=== PATIENT | male | born 1965 | race Caucasian/White ===

== ENCOUNTER 2021-02-07 18:20 | Emergency (ER) | payer OTHER ==
[~2021-02-07 18:20] MED LIST: ALBUTEROL2.5 MG/3 M NEB; CEFUROXIME500 MG PO; CRESTOR 10 MG T10 MG PO; HYDROCODON-ACE1 EAC2 PO; LEVETIRACETAM500 MG PO; LOPRESSOR 25 MG25 MG PO; LOVASTATIN10 MG PO; MEDROL4 MG PO; METHOCARBAMOL500 MG PO; NEURONTIN300 MG PO; NORVASC 5 MG TAB5 MG PO; PROAIR HFA8.5 GM INH; SINGULAIR10 MG PO; TESSALON PERLE100 MG PO; TYLENOL 325MG325 MG PO; VITAMIN D21250 MCG PO
[2021-02-07 19:31] LABS: HEMOGLOBIN 12.8 gm/dl (14.0-17.5); RED BLOOD COUNT 4.42 M/UL (4.20-5.50); WHITE BLOOD COUNT 9.9 K/UL (4.5-11.0)
[2021-02-07 19:52] LABS: BUN/CREATININE RATIO 10 (0-10)
== END 2021-02-07 22:55 | disposition home or self-care (01) ==
LOC: ER1 18:20
PROVIDERS: Physician Assistant
DX: R53.1 Weakness (principal); R53.83 Other fatigue; I10 Essential (primary) hypertension; E78.5 Hyperlipidemia, unspecified; F41.9 Anxiety disorder, unspecified; F17.210 Nicotine dependence, cigarettes, uncomplicated; Z90.49 Acquired absence of other specified parts of digestive tract
CPT/HCPCS: 71045; 80053; 81001; 82550; 82553; 83605; 83735; 83874; 83880; 84484; 85025; 85610; 85652; 85730; 87040; 87086; 99285

== ENCOUNTER 2021-02-12 22:34 | Inpatient (IN) | payer OTHER ==
[~2021-02-12] VITALS: Ht 182.9 cm; Wt 104.3 kg
[2021-02-13] MEDS ORDERED: METOPROLOL SUC100 MG PO (00:04)
[2021-02-13 00:05] LABS: HEMOGLOBIN 13.1 gm/dl (14.0-17.5); RED BLOOD COUNT 4.53 M/UL (4.20-5.50); WHITE BLOOD COUNT 14.3 K/UL (4.5-11.0)
[2021-02-13 00:18] LABS: BUN/CREATININE RATIO 17 (0-10)
[2021-02-13 05:23] LABS: HEMOGLOBIN 13.4 gm/dl (14.0-17.5); RED BLOOD COUNT 4.67 M/UL (4.20-5.50); WHITE BLOOD COUNT 12.3 K/UL (4.5-11.0)
[2021-02-13] MEDS ORDERED: AZELASTINE137 MCG/0. (10:56)
[2021-02-13] MEDS ORDERED: FLONASE ALLER15.8 ML (10:56)
[2021-02-13] MEDS ORDERED: SINGULAIR10 MG PO (10:57)
[2021-02-13] MEDS ORDERED: ALBUTEROL2.5 MG/3 M NEB (10:58)
[2021-02-13] MEDS ORDERED: STIOLTO RESPIMAT4 GM INH (10:58)
[2021-02-13] MEDS ORDERED: IPRAT-ALBUT 0.5-3 ML INH (10:59)
--- NOTE | 2021-02-13 13:12 | NUR ---
0700 ADMISSION/ASSESMENT COMPLETE.... 1258 ADMISSION CHARTED FORGOT TO CHANGE TIME STAMP TO 0700.
[2021-02-13] MEDS ORDERED: KLONOPIN1 MG PO (23:50)
[2021-02-14 02:24] LABS: HEMOGLOBIN 12.1 gm/dl (14.0-17.5); RED BLOOD COUNT 4.3 M/UL (4.20-5.50); WHITE BLOOD COUNT 13.4 K/UL (4.5-11.0)
[2021-02-14 03:16] LABS: BUN/CREATININE RATIO 23 (0-10)
--- NOTE | 2021-02-14 06:25 | NUR ---
PT GOT UP AND PULLED IV APART AND WAS STAGGERING DOWN THE MEJIA WITH BLOOD DRIPPING FROM IV. CONFUSED TO TIME AND PLACE. OXYGEN OFF WELL. IN THE ROOM SLEEPING. PATIENT REDIRECTED AND REORIENTED AND WOKE UP. PATIENT IS TEARY STATING HE DOESNT WANT TO BE TIED DOWN. EXPLAINED TO PATIENT THAT WITH HIS ILLNESS HE NEEDS TO BE MONITORED CLOSER SO HE CAN GET BETTER AND GO HOME. PATIENTS COMES OVER AND SITS ON THE BED AND STATES SHE WILL STAY UP BUT SHE ALSO IS STAGGERING WITH SLURRED SPEECH POSSIBLY DUE TO MEDICATION AND SHE STATES SHE IS NOT AWAKE YET.
[2021-02-14 14:47] LABS: HEMOGLOBIN 11.5 gm/dl (14.0-17.5); RED BLOOD COUNT 4.03 M/UL (4.20-5.50); WHITE BLOOD COUNT 10.7 K/UL (4.5-11.0)
[2021-02-14 15:06] LABS: BUN/CREATININE RATIO 18 (0-10)
[2021-02-15 05:26] LABS: HEMOGLOBIN 11.5 gm/dl (14.0-17.5); RED BLOOD COUNT 4.05 M/UL (4.20-5.50); WHITE BLOOD COUNT 10.6 K/UL (4.5-11.0)
[2021-02-15 05:45] LABS: BUN/CREATININE RATIO 19 (0-10)
[2021-02-15] MEDS ORDERED: MEDROL4 MG PO (10:37)
[2021-02-15] MEDS ORDERED: LEVOFLOXACIN750 MG PO (10:37)
== END 2021-02-15 11:45 | disposition home or self-care (01) | DRG 189 ==
LOC: ER1 22:34 → CDU 02-13 01:47 → PROG CARE 02-13 07:50
PROVIDERS: Family Medicine; ADMIT Internal Medicine
DX: J96.21 Acute and chronic respiratory failure with hypoxia (principal); J44.1 Chronic obstructive pulmonary disease with (acute) exacerbation; K86.1 Other chronic pancreatitis; G40.909 Epilepsy, unspecified, not intractable, without status epilepticus; Z20.822 Contact with and (suspected) exposure to COVID-19; E78.5 Hyperlipidemia, unspecified; M47.896 Other spondylosis, lumbar region; I48.91 Unspecified atrial fibrillation; I11.9 Hypertensive heart disease without heart failure; J96.22 Acute and chronic respiratory failure with hypercapnia; F41.9 Anxiety disorder, unspecified; F17.210 Nicotine dependence, cigarettes, uncomplicated; E11.43 Type 2 diabetes mellitus with diabetic autonomic (poly)neuropathy; Z99.81 Dependence on supplemental oxygen; Z87.01 Personal history of pneumonia (recurrent); Z90.49 Acquired absence of other specified parts of digestive tract; Z83.3 Family history of diabetes mellitus; Z82.49 Family history of ischemic heart disease and other diseases of the circulatory system; Z79.4 Long term (current) use of insulin; Z79.01 Long term (current) use of anticoagulants; Z71.6 Tobacco abuse counseling
CPT/HCPCS: 0240U; 36415; 36600; 71045; 80048; 80053; 80202; 80307; 82550; 82553; 82803; 82962; 83605; 83880; 84484; 85025; 85027; 85610; 87040; 93005; 94640; 94660; 94664; 94760; 96374; 99285; G0480; J1650; J1956; J2920; J2930; J3370; J7030; J7070

== ENCOUNTER 2021-03-05 02:11 | Inpatient (IN) | payer OTHER ==
[~2021-03-05] VITALS: Ht 185.4 cm; Wt 104.3 kg
[~2021-03-05 02:11] MED LIST changes: +AZELASTINE137 MCG/0.; +FLONASE ALLER15.8 ML; +IPRAT-ALBUT 0.5-3 ML INH; +KLONOPIN1 MG PO; +LEVOFLOXACIN750 MG PO; +METOPROLOL SUC100 MG PO; +STIOLTO RESPIMAT4 GM INH
[2021-03-05 02:59] LABS: HEMOGLOBIN 12.9 gm/dl (14.0-17.5); RED BLOOD COUNT 4.44 M/UL (4.20-5.50); WHITE BLOOD COUNT 9.3 K/UL (4.5-11.0)
[2021-03-05 03:20] LABS: BUN/CREATININE RATIO 13 (0-10)
[2021-03-05] MEDS ORDERED: VITAMIN D21250 MCG PO (08:02)
[2021-03-05] MEDS ORDERED: NORVASC10 MG PO (08:02)
[2021-03-06 03:32] LABS: HEMOGLOBIN 11.6 gm/dl (14.0-17.5); RED BLOOD COUNT 4.24 M/UL (4.20-5.50); WHITE BLOOD COUNT 12.6 K/UL (4.5-11.0)
[2021-03-06 04:00] LABS: BUN/CREATININE RATIO 20 (0-10)
[2021-03-07 03:55] LABS: BUN/CREATININE RATIO 14 (0-10)
[2021-03-07] MEDS ORDERED: GLUCOPHAGE 500500 MG PO (16:41)
== END 2021-03-07 18:16 | disposition home or self-care (01) | DRG 193 ==
LOC: ER1 02:11 → PROG CARE 03:30 → CDU 03:30 → PROG CARE 18:10
PROVIDERS: Physician Assistant; Physician Assistant Medical; ADMIT Family Medicine
DX: J18.9 Pneumonia, unspecified organism (principal); J96.21 Acute and chronic respiratory failure with hypoxia; K86.1 Other chronic pancreatitis; J44.0 Chronic obstructive pulmonary disease with (acute) lower respiratory infection; E11.9 Type 2 diabetes mellitus without complications; Z20.822 Contact with and (suspected) exposure to COVID-19; G89.29 Other chronic pain; I10 Essential (primary) hypertension; E78.5 Hyperlipidemia, unspecified; E66.9 Obesity, unspecified; F41.9 Anxiety disorder, unspecified; G40.909 Epilepsy, unspecified, not intractable, without status epilepticus; F17.210 Nicotine dependence, cigarettes, uncomplicated; Z99.81 Dependence on supplemental oxygen; Z87.01 Personal history of pneumonia (recurrent); Z90.49 Acquired absence of other specified parts of digestive tract; Z83.3 Family history of diabetes mellitus; Z82.49 Family history of ischemic heart disease and other diseases of the circulatory system; Z68.30 Body mass index [BMI] 30.0-30.9, adult
CPT/HCPCS: 36415; 36600; 71045; 80048; 80053; 82550; 82553; 82803; 82962; 83036; 83735; 83874; 83880; 84132; 84484; 85025; 85027; 93005; 94640; 94660; 94664; 94760; 99285; J0456; J0696; J1650; J2930; J7030; U0002

== ENCOUNTER → 2021-08-02 | Outpatient (CLI) | payer OTHER ==
[~2021-08-02] MED LIST changes: +GLUCOPHAGE 500500 MG PO; +NORVASC10 MG PO
== END ==
LOC: KOH-I 10:00
DX: F17.210 Nicotine dependence, cigarettes, uncomplicated (principal); R91.1 Solitary pulmonary nodule
CPT/HCPCS: 71271